=== PATIENT | female | born 1980 | race Caucasian/White ===

== ENCOUNTER 2016-08-23 10:16 | Emergency (ER) | payer SELFPAY ==
[~2016-08-23] VITALS: Ht 167.6 cm; Wt 70.0 kg
[2016-08-23] MEDS ORDERED: ZIPRASIDONE MESYLATE 20MG/VIAL IM STA (11:00)
[2016-08-23] MEDS ORDERED: LORAZEPAM 2MG/ML CPJ IV STA (11:00)
[2016-08-23] MEDS ORDERED: DIPHENHYDRAMINE 50MG/ML VIAL IM STA (11:10)
[2016-08-23] MEDS ORDERED: HALOPERIDOL LACTATE 5MG/ML VIAL IM ONE (11:15)
[2016-08-23] MEDS: LORAZEPAM 2MG/ML CPJ IM PRN ×2 (11:33→13:19)
[2016-08-23 12:46] LABS: CLARITY URINE CLEAR (CLEAR); COLOR URINE YELLOW (YELLOW); GLUCOSE URINE NEGATIVE (NEGATIVE); KETONES URINE NEGATIVE (NEGATIVE); LEUKOCYTE ESTERASE URINE 3+ (NEGATIVE); NITRITE URINE NEGATIVE (NEGATIVE); OCCULT BLOOD URINE NEGATIVE (NEGATIVE); PH URINE 6.5 (4.5-8.0); PROTEIN URINE NEGATIVE (NEGATIVE); SPECIFIC GRAVITY URINE 1.015 (1.005-1.030); UROBILINOGEN URINE 0.2 E.U./dL (0.2-1.0)
[2016-08-23 13:05] LABS: BASOPHILS % 0.7 % (0.0-2.0); EOSINOPHILS % 4.3 % (0.0-5.0); HEMATOCRIT. 36.7 % (36.0-48.0); HEMOGLOBIN. 11.8 g/dL (12.0-16.0); LYMPHOCYTES % 24.4 % (20.0-50.0); MEAN CORPUSCULAR HEMOGLOBIN 23.8 pg (28.0-32.0); MEAN CORPUSCULAR VOLUME 73.9 fL (81.0-99.0); MEAN PLATELET VOLUME 7.5 fl (7.4-10.4); MONOCYTES % 8.3 % (2.0-8.0); NEUTROPHILS % 62.3 % (40.0-76.0); PLATELET 309 x1000/uL (130-400); RED BLOOD CELL COUNT 4.97 mill/uL (4.2-5.4); RED CELL DISTRIBUTION WIDTH 15.7 % (11.6-14.6)
[2016-08-23 13:12] LABS: *BARBITURATES SCREEN URINE NEGATIVE (NEGATIVE); *BENZODIAZEPINES SCREEN URINE NEGATIVE (NEGATIVE); *COCAINE SCREEN URINE NEGATIVE (NEGATIVE); METHADONE URINE SCREEN NEGATIVE (NEGATIVE); OPIATES URINE SCREEN NEGATIVE (NEGATIVE); PHENCYCLIDINE URINE SCREEN NEGATIVE (NEGATIVE)
[2016-08-23 13:12] LABS: CHLORIDE 109 mEq/L (98-107)
[2016-08-23 13:17] LABS: *AMPHETAMINES SCREEN URINE PRESUMTIVE POSITIVE (NEGATIVE); CANNABINOID URINE SCREEN PRESUMTIVE POSITIVE (NEGATIVE)
[2016-08-23 13:21] LABS: CARBON DIOXIDE 24 mEq/L (21-32); ETHANOL BLOOD < 10 mg/dL
[2016-08-24 05:53] VITALS: BP 144/106
== END 2016-08-24 10:47 | disposition home or self-care (01) ==
LOC: ER 10:17
DX: F23 Brief psychotic disorder (principal); F15.10 Other stimulant abuse, uncomplicated; F12.10 Cannabis abuse, uncomplicated
CPT/HCPCS: 36415; 80053; 80305; 80307; 80329; 81001; 84702; 85025; 96372; 99284; G0482; J1200; J1630; J2060; J3486